=== PATIENT | male | born 1960 | race Caucasian/White ===

== ENCOUNTER 2023-02-12 10:02 | Inpatient (IN) | payer MEDICAID ==
[2023-02-12] VITALS (14 sets, daily range): BP systolic 107–112; BP diastolic 50–53; PULSE 78–92; RESP 18–25; TEMP 98–98.1; O2SAT 93–100
[~2023-02-12] VITALS: Ht 175.3 cm; Wt 101.0 kg
[~2023-02-12 10:02] MED LIST: ADV50500 INH; ASPI-1264 PO; COR3.125T PO; LISI-232 PO; LORA1TAB PO; NIA500ERT PO; SIN25C PO; TIOT18CA7 IH; TRAM50TA2 PO; VARE1TAB11 PO
[2023-02-12 10:45] LABS: BASOPHILS % (AUTO) 0.5 % (0-1); EOSINOPHILS % (AUTO) 0 % (0-6); HEMATOCRIT 40.9 % (42.0-52.0); HEMOGLOBIN 13.4 g/dl (14.0-17.9); LYMPHOCYTES # (AUTO) 0.5 X10'3 (1.1-4.8); LYMPHOCYTES % (AUTO) 4.4 % (21-51); MEAN CORPUSCULAR HEMOGLOBIN 31.6 PG (27.0-31.0); MEAN CORPUSCULAR HGB CONC 32.8 g/dL (33.0-36.5); MEAN CORPUSCULAR VOLUME 96.4 FL (78-98); MEAN PLATELET VOLUME 10.3 FL (7.4-10.4); MONOCYTES # (AUTO) 0.4 X10'3 (0-0.9); NEUTROPHILS # (AUTO) 9.5 X10'3 (1.8-7.7); NEUTROPHILS % (AUTO) 91.1 % (42-75); PLATELET COUNT 184 X10'3 (140-440); RED BLOOD COUNT 4.24 X10'6 (4.70-6.10); RED CELL DISTRIBUTION WIDTH 12.7 % (11.5-14.5); WHITE BLOOD COUNT 10.4 X10'3 (4.5-11.0)
[2023-02-12 11:06] LABS: ALANINE AMINOTRANSFERASE 33 U/L (12-78); ALBUMIN 3.6 G/DL (3.4-5.0); ALKALINE PHOSPHATASE 37 IU/L (46-116); ANION GAP 1 (8-16); ASPARTATE AMINO TRANSFERASE 25 U/L (10-37); BILIRUBIN,TOTAL 0.3 MG/DL (0.1-1.0); BLOOD UREA NITROGEN 29 MG/DL (7-18); BUN/CREATININE RATIO 37.7 (10.0-20.0); CALCIUM 9.7 MG/DL (8.5-10.1); CHLORIDE 97 MMOL/L (99-107); CREATININE 0.77 MG/DL (0.60-1.10); GLUCOSE 131 MG/DL (70-104); POTASSIUM 4.3 MMOL/L (3.5-5.1); PRO BRAIN NATRIURETIC PEPTIDE 79 PG/ML (0-125); SODIUM 142 MMOL/L (135-145); TOTAL PROTEIN 7.3 G/DL (6.4-8.2); eCRCL 97 ML/MIN; eGFR > 90 ML/MIN
[2023-02-12 11:45] LABS: ABG BASE EXCESS 18.9 mmol/L (-2.0-2.0); ABG HCO3 52.8 mmol/L (22.0-26.0); ABG OXYGEN SATURATION 97.9 % (94-97); ABG PCO2 (T) 126.8 mmHg (35.0-48.0); ABG PH (T) 7.236 (7.340-7.440); ABG PO2 (T) 120.1 mmHg (75.0-100.0); ALLEN'S TEST POSITIVE; FCOHb 1.5 % (0.0-3.9); FHHb 2.1 % (0.0-5.0); FLOW 4 L/min; FMetHb 0.2 % (0.0-1.5); FO2Hb 96.2 % (94-97); MODE NASAL CANNULA; PATIENT TEMPERATURE 36.9; TOTAL HEMOGLOBIN 13.8 G/dl (14.0-17.9)
[2023-02-12] MEDS ORDERED: normal saline 1000ml 1,000 ML IV STA (12:02)
[2023-02-12 13:15] LABS: BILIRUBIN,URINE NEGATIVE (Neg); CLARITY,URINE CLEAR (Clear); COLOR,URINE YELLOW (Yellow); GLUCOSE, URINE NEGATIVE (Neg); KETONES,URINE NEGATIVE (Neg); LEUKOCYTE ESTERASE ,URINE NEGATIVE (Neg); NITRITES, URINE NEGATIVE (Neg); OCCULT BLOOD,URINE TRACE-INTACT (Neg); PROTEIN,URINE TRACE mg/dl (Neg); UROBILINOGEN,URINE 0.2 E.U/dL (0.2-1.0)
[2023-02-12 13:16] LABS: UA COLLECTION TYPE STRAIGHT CATH
[2023-02-12 13:21] LABS: HYALINE CASTS 0-3 /LPF (NEGATIVE); SQUAMOUS EPITHELIAL CELL,UR FEW /LPF (FEW)
[2023-02-12 13:23] LABS: ABG BASE EXCESS 8.7 mmol/L (-2.0-2.0); ABG HCO3 39.2 mmol/L (22.0-26.0); ABG OXYGEN SATURATION 88.2 % (94-97); ABG PCO2 (T) 91.6 mmHg (35.0-48.0); ABG PH (T) 7.253 (7.340-7.440); ABG PO2 (T) 60.3 mmHg (75.0-100.0); ALLEN'S TEST POSITIVE; FCOHb 1.5 % (0.0-3.9); FHHb 11.6 % (0.0-5.0); FMetHb 0.2 % (0.0-1.5); FO2Hb 86.7 % (94-97); MODE MASK - BIPAP; PATIENT TEMPERATURE 37.6; TIDAL VOLUME 391 mL; TOTAL HEMOGLOBIN 13.3 G/dl (14.0-17.9)
[2023-02-12 13:25] LABS: WBC,URINE 0-4 /HPF (0-4)
[2023-02-12 13:27] LABS: BACTERIA,URINE FEW /HPF (Neg)
[2023-02-12 13:32] LABS: TRANSITIONAL EPI CELLS,URINE FEW /HPF
[2023-02-12] MEDS ORDERED: potassium Cl 20 mEq SR tablet PO PRN ×2 (13:35)
[2023-02-12] MEDS ORDERED: acetaminophen 325mg tablet PO PRN (13:35)
[2023-02-12] MEDS ORDERED: magnesium Cl slow-release 64mg tablet PO PRN (13:35)
[2023-02-12] MEDS ORDERED: magnesium 2GM in 50ml NS 50 ML IV PRN (13:35)
[2023-02-12] MEDS ORDERED: magnesium 4gm in 100ml NS 100 ML IV PRN (13:35)
[2023-02-12] MEDS ORDERED: ondansetron/PF 4mg/2ml inj IV PRN (13:35)
[2023-02-12] MEDS ORDERED: potassium Cl 40MEQ/1/2NS 520ml 520 ML IV PRN (13:35)
[2023-02-12 13:38] LABS: RENAL CELLS, URINE FEW /HPF
[2023-02-12] MEDS: CefTRIAXone 2gm/D5W 50ml BAG 50 ML IV SCH (14:14)
[2023-02-12 14:23] LABS: URINE AMPHETAMINE SCREEN NEGATIVE (Neg); URINE BARBITUATE SCREEN NEGATIVE (Neg); URINE BENZODIAZEPINES SCREEN NEGATIVE (Neg); URINE CANNABINOID SCREEN NEGATIVE (Neg); URINE COCAINE SCREEN NEGATIVE (Neg); URINE METHADONE SCREEN NEGATIVE (Neg); URINE OPIATE SCREEN NEGATIVE (Neg); URINE PHENCYCLIDINE SCREEN NEGATIVE (Neg)
[2023-02-12] MEDS: albuterol 2.5 MG/3 ML nebule NEB SCH ×3 (14:42→23:34)
[2023-02-12] MEDS ORDERED: ARIP2TAB20 PO (17:08)
[2023-02-12] MEDS ORDERED: ALBU10.7 (17:08)
[2023-02-12] MEDS ORDERED: BUDE10.22 (17:08)
[2023-02-12] MEDS ORDERED: CLON2TAB11 PO (17:08)
[2023-02-12] MEDS ORDERED: FLUO-1 PO (17:08)
[2023-02-12 17:56] LABS: ABG BASE EXCESS 13.9 mmol/L (-2.0-2.0); ABG HCO3 43.7 mmol/L (22.0-26.0); ABG OXYGEN SATURATION 97.4 % (94-97); ABG PCO2 (T) 82.9 mmHg (35.0-48.0); ABG PH (T) 7.337 (7.340-7.440); ABG PO2 (T) 98.7 mmHg (75.0-100.0); ALLEN'S TEST POSITIVE; FCOHb 0.7 % (0.0-3.9); FHHb 2.6 % (0.0-5.0); FMetHb 0.2 % (0.0-1.5); FO2Hb 96.5 % (94-97); MODE MASK - BIPAP; PATIENT TEMPERATURE 36.4; RESPIRATORY RATE 24 b/min; TIDAL VOLUME 440 mL; TOTAL HEMOGLOBIN 12.8 G/dl (14.0-17.9)
[2023-02-12] MEDS ORDERED: enoxaparin 40mg/0.4ml syringe SQ SCH (20:00)
[2023-02-12] MEDS: methylPREDNISolone sod succ/PF 40mg inj. IV SCH (20:21)
[2023-02-12] MEDS ORDERED: acetaZOLAMIDE IV 500mg inj IV ONE (22:40)
[2023-02-12] MEDS ORDERED: prazosin 1mg capsule PO ONE (22:40)
[2023-02-12] MEDS ORDERED: Melatonin 3mg tablet PO SCH (22:45)
[2023-02-13] VITALS (11 sets, daily range): BP systolic 112–117; BP diastolic 50–64; PULSE 72–94; RESP 18–21; TEMP 97.3–98; O2SAT 87–96
[2023-02-13] MEDS: albuterol 2.5 MG/3 ML nebule NEB SCH ×4 (03:47→15:47)
[2023-02-13 07:05] LABS: BASOPHILS % (AUTO) 0.5 % (0-1); EOSINOPHILS % (AUTO) 0 % (0-6); HEMATOCRIT 37.2 % (42.0-52.0); HEMOGLOBIN 12.3 g/dl (14.0-17.9); LYMPHOCYTES # (AUTO) 0.8 X10'3 (1.1-4.8); LYMPHOCYTES % (AUTO) 12.4 % (21-51); MEAN CORPUSCULAR HEMOGLOBIN 31.5 PG (27.0-31.0); MEAN CORPUSCULAR VOLUME 95.3 FL (78-98); MEAN PLATELET VOLUME 10.2 FL (7.4-10.4); MONOCYTES # (AUTO) 0.2 X10'3 (0-0.9); MONOCYTES % (AUTO) 3.8 % (2-12); NEUTROPHILS % (AUTO) 83.3 % (42-75); PLATELET COUNT 163 X10'3 (140-440); RED CELL DISTRIBUTION WIDTH 12.8 % (11.5-14.5); WHITE BLOOD COUNT 6.1 X10'3 (4.5-11.0)
[2023-02-13 07:20] LABS: ALANINE AMINOTRANSFERASE 27 U/L (12-78); ALBUMIN 3.1 G/DL (3.4-5.0); ALBUMIN/GLOBULIN RATIO 0.8 (1.1-1.5); ALKALINE PHOSPHATASE 33 IU/L (46-116); ANION GAP 3 (8-16); ASPARTATE AMINO TRANSFERASE 20 U/L (10-37); BILIRUBIN,TOTAL 0.4 MG/DL (0.1-1.0); BLOOD UREA NITROGEN 38 MG/DL (7-18); BUN/CREATININE RATIO 42.7 (10.0-20.0); CALCIUM 9.6 MG/DL (8.5-10.1); CHLORIDE 95 MMOL/L (99-107); CREATININE 0.89 MG/DL (0.60-1.10); GLUCOSE 165 MG/DL (70-104); POTASSIUM 4.1 MMOL/L (3.5-5.1); SODIUM 137 MMOL/L (135-145); eCRCL 84 ML/MIN; eGFR 86 ML/MIN
[2023-02-13] MEDS: CefTRIAXone 2gm/D5W 50ml BAG 50 ML IV SCH (07:40)
[2023-02-13] MEDS: methylPREDNISolone sod succ/PF 40mg inj. IV SCH (07:40)
== END 2023-02-13 18:05 | disposition left against medical advice (07) | DRG 52 ==
LOC: ER 10:03 → ED HOLD 13:38 → EDBEDREQ 18:29 → PCU 3S 19:14
PROVIDERS: ADMIT Internal Medicine; ATTEND Internal Medicine
PROC: 5A09357 Assistance with Respiratory Ventilation, Less than 24 Consecutive Hours, Continuous Positive Airway Pressure (ICD-10-PCS; principal; 2023-02-12)
DX: G93.41 Metabolic encephalopathy (principal); J96.22 Acute and chronic respiratory failure with hypercapnia; Z99.81 Dependence on supplemental oxygen; J44.9 Chronic obstructive pulmonary disease, unspecified; Z53.21 Procedure and treatment not carried out due to patient leaving prior to being seen by health care provider; I10 Essential (primary) hypertension; I25.10 Atherosclerotic heart disease of native coronary artery without angina pectoris; F32.A Depression, unspecified; F41.9 Anxiety disorder, unspecified; R79.89 Other specified abnormal findings of blood chemistry; I48.0 Paroxysmal atrial fibrillation; Z79.82 Long term (current) use of aspirin; Z79.899 Other long term (current) drug therapy; Z86.73 Personal history of transient ischemic attack (TIA), and cerebral infarction without residual deficits
CPT/HCPCS: 36415; 36600; 70450; 71045; 80053; 80305; 81001; 82803; 83605; 83880; 84145; 84484; 85018; 85025; 87040; 87077; 87186; 93306; 94640; 94660; 94760; 99285; A4615; G0378; J0696; J1120; J1650; J2920; J7030